=== PATIENT | female | born 1970 | race African-American/Black ===

== ENCOUNTER 2018-09-12 14:15 | Emergency (ER) | payer OTHER ==
[~2018-09-12] VITALS: Ht 162.6 cm; Wt 99.8 kg
[2018-09-12] MEDS ORDERED: BRINTELLIX10 MG PO (14:31)
[2018-09-12] MEDS ORDERED: SENNA8.6 MG PO (14:32)
[2018-09-12] MEDS ORDERED: TRAZODONE HCL50 MG PO (14:32)
[2018-09-12] MEDS ORDERED: TRAMADOL 50 MG50 MG PO (15:25)
[2018-09-12] MEDS ORDERED: NAPROSYN500 MG PO (15:25)
[2018-09-12 15:43] VITALS: BP 110/65
== END 2018-09-12 15:44 | disposition home or self-care (01) ==
LOC: ER 14:15
DX: M17.12 Unilateral primary osteoarthritis, left knee (principal); M25.552 Pain in left hip; M25.512 Pain in left shoulder; Z88.8 Allergy status to other drugs, medicaments and biological substances; Z90.710 Acquired absence of both cervix and uterus; W18.39XA Other fall on same level, initial encounter; Y92.89 Other specified places as the place of occurrence of the external cause; Y93.89 Activity, other specified; Y99.8 Other external cause status

== ENCOUNTER 2019-07-12 11:14 | Emergency (ER) | payer OTHER ==
[~2019-07-12] VITALS: Ht 162.6 cm; Wt 104.3 kg
[~2019-07-12 11:14] MED LIST: BRINTELLIX10 MG PO; NAPROSYN500 MG PO; SENNA8.6 MG PO; TRAMADOL 50 MG50 MG PO; TRAZODONE HCL50 MG PO
[2019-07-12] MEDS ORDERED: CYCLOBENZAPRINE5 MG PO (12:40)
[2019-07-12] MEDS ORDERED: LIDOCAINE PAIN1 EACH TRANSDERM (12:40)
[2019-07-12] MEDS ORDERED: NORCO 10-325 T1 EACH PO (12:40)
[2019-07-12] MEDS ORDERED: MEDROLDOSEPACK PO (12:40)
[2019-07-12 12:56] VITALS: BP 120/83
== END 2019-07-12 12:57 | disposition home or self-care (01) ==
LOC: ER 11:14
DX: M51.26 Other intervertebral disc displacement, lumbar region (principal); Z90.710 Acquired absence of both cervix and uterus; Z88.8 Allergy status to other drugs, medicaments and biological substances

== ENCOUNTER 2021-02-11 19:02 | Emergency (ER) | payer OTHER ==
[~2021-02-11] VITALS: Ht 172.7 cm; Wt 90.7 kg
[~2021-02-11 19:02] MED LIST changes: +CYCLOBENZAPRINE5 MG PO; +LIDOCAINE PAIN1 EACH TRANSDERM; +MEDROLDOSEPACK PO; +NORCO 10-325 T1 EACH PO
[2021-02-11 20:44] LABS: BASOPHILS 0.6 % (0.0-2.0); HEMATOCRIT 38.9 % (37.0-47.0); HEMOGLOBIN 12.5 gm/dL (12.0-15.0); MCH 28.1 pg (26.0-34.0); MCHC 32.3 g/dL (28.0-37.0); MONOCYTES 7.3 % (1.0-8.0); PLATELET COUNT 255 thou/uL (150-400); POLYS 68.1 % (36.0-66.0); RBC 4.47 mil/uL (4.20-5.00); RDW 14.1 % (10.5-14.5); WBC 10.3 thou/uL (4.0-11.0)
[2021-02-11 20:55] LABS: ANION GAP 9 mmol/L (7-16); BUN 14 mg/dL (7-18); CALCIUM 8.5 mg/dL (8.5-10.1); CHLORIDE 106 mmol/L (98-107); CO2 25 mmol/L (21-32); CREATININE 0.8 mg/dL (0.6-1.0); GLUCOSE 92 mg/dL (74-106); POTASSIUM 4.3 mmol/L (3.5-5.1); SODIUM 140 mmol/L (136-145)
[2021-02-11 21:00] LABS: ALBUMIN 3.1 g/dL (3.4-5.0); DIRECT BILIRUBIN < 0.1 mg/dL (<0.1-0.2); SGOT 41 U/L (15-37); SGPT 25 U/L (14-59); TOTAL BILIRUBIN 0.4 mg/dL (0.2-1.0)
[2021-02-12 05:39] VITALS: BP 123/89
--- NOTE | 2021-02-12 07:23 | EKG ---
[place] [address] [facility] [place] [address] ELECTROCARDIOGRAM REPORT Name: BLACK FERNÁNDEZ [id number] Admission: 02/11/21 Attend Phys: Discharge: 02/12/21 Date of : 70 Report #: [id number] [facility] ED Test Date: 2021-02-11 Test Time: 21:59:04 Pat Name: BLACK FERNÁNDEZ Department: Room: Gender: F Mind Reader: [email or web address] : 1970 Requested By: Joseline Holguin Order Number: [id number] MD: Santhosh Smallwood Measurements Intervals [place] Rate: 82 P: 70 [place]: 138 QRS: 41 QRSD: 71 T: 52 QT: 401 QTc: 469 Interpretive Statements Sinus rhythm Consider right atrial enlargement No previous ECG available for comparison Electronically Signed On 02-12-2021 7:22:58 CDT by Santhosh Smallwood [email or web address] <ELECTRONICALLY SIGNED> By: Santhosh Smallwood MD, [facility] 02/12/21 0722 [id number] Santhosh Smallwood MD, FACC /EPI
--- NOTE | 2021-02-13 07:34 | EKG ---
[address] [address] ELECTROCARDIOGRAM REPORT Name: BLACK FERNÁNDEZ [facility] [id number] Admission: 02/11/21 Attend Phys: Discharge: 02/12/21 Date of : 70 Report #: [id number] [facility] ED Test Date: 2021-02-11 Test Time: 21:57:27 Pat Name: BLACK FERNÁNDEZ Department: Room: Gender: F Database Analyst: [email or web address] : 1970 Requested By: Laura Paredes Order Number: [id number] MD: Santhosh Smallwood Measurements Intervals [place] Rate: 83 P: 68 [place]: 133 QRS: 46 QRSD: 75 T: 62 QT: 412 QTc: 485 Interpretive Statements Sinus rhythm Right atrial enlargement No previous ECG available for comparison Electronically Signed On 02-13-2021 7:33:57 CDT by Santhosh Smallwood [email or web address] <ELECTRONICALLY SIGNED> By: Santhosh Smallwood MD, [facility] 02/13/21 0733 [id number] Santhosh Smallwood MD, FACC /EPI
== END 2021-02-12 05:40 ==
LOC: ER 19:02
PROVIDERS: Emergency Medicine; Physician Assistant
DX: R41.82 Altered mental status, unspecified (principal); T50.995A Adverse effect of other drugs, medicaments and biological substances, initial encounter; Z90.710 Acquired absence of both cervix and uterus; Z88.8 Allergy status to other drugs, medicaments and biological substances; Y92.89 Other specified places as the place of occurrence of the external cause

== ENCOUNTER 2021-09-11 13:07 | Emergency (ER) | payer OTHER | END 2021-09-11 13:56 | disposition left against medical advice (07) | LOC: ER 13:07 | DX: M25.511 Pain in right shoulder (principal); M25.512 Pain in left shoulder; Z53.21 Procedure and treatment not carried out due to patient leaving prior to being seen by health care provider ==